=== PATIENT | female | born 1980 | race Caucasian/White ===

== ENCOUNTER 2018-06-10 15:52 | Emergency (ER) | payer OTHER ==
[~2018-06-10] VITALS: Ht 175.3 cm; Wt 108.9 kg
[2018-06-10] MEDS ORDERED: ZOCOR20 MG PO (16:08)
[2018-06-10] MEDS ORDERED: ASPIR 8181 MG PO (16:08)
[2018-06-10] MEDS ORDERED: NORCO 5-325 TA1 EACH PO (16:09)
[2018-06-10] MEDS ORDERED: IMITREX 25 MG T25 M1 PO (16:09)
[2018-06-10 16:52] VITALS: BP 153/60
== END 2018-06-10 16:52 | disposition home or self-care (01) ==
LOC: M.ERS 15:52
DX: T81.31XA Disruption of external operation (surgical) wound, not elsewhere classified, initial encounter (principal); I10 Essential (primary) hypertension; F17.210 Nicotine dependence, cigarettes, uncomplicated; Z90.49 Acquired absence of other specified parts of digestive tract; Y83.8 Other surgical procedures as the cause of abnormal reaction of the patient, or of later complication, without mention of misadventure at the time of the procedure; Y92.89 Other specified places as the place of occurrence of the external cause